=== PATIENT | female | born 1955 | race African-American/Black ===

== ENCOUNTER 2018-02-24 11:25 | Emergency (ER) | payer OTHER ==
[~2018-02-24] VITALS: Ht 165.1 cm; Wt 66.0 kg
[2018-02-24] MEDS ORDERED: PREDNISONE 20MG TABLET PO ONE (12:00)
[2018-02-24] MEDS ORDERED: FAMOTIDINE 20MG TABLET PO ONE (12:00)
[2018-02-24] MEDS ORDERED: DIPHENHYDRAMINE 50MG CAPSULE PO ONE (12:00)
[2018-02-24 14:23] VITALS: BP 141/84
== END 2018-02-24 14:31 | disposition home or self-care (01) ==
LOC: ER 11:25
DX: T78.40XA Allergy, unspecified, initial encounter (principal); E11.9 Type 2 diabetes mellitus without complications; I10 Essential (primary) hypertension; Z90.710 Acquired absence of both cervix and uterus; Z88.2 Allergy status to sulfonamides; Z91.041 Radiographic dye allergy status; J45.909 Unspecified asthma, uncomplicated; Z90.49 Acquired absence of other specified parts of digestive tract; X58.XXXA Exposure to other specified factors, initial encounter
CPT/HCPCS: 99284; J7512; Z7610; Q0163

== ENCOUNTER 2023-10-04 13:32 | Emergency (ER) | payer OTHER ==
[~2023-10-04] VITALS: Ht 162.6 cm; Wt 65.0 kg
[2023-10-04 13:47] VITALS: O2SAT 99
[2023-10-04 17:54] VITALS: BP 136/85; PULSE 64; RESP 20; TEMP 97.7
== END 2023-10-04 18:16 | disposition home or self-care (01) ==
LOC: ER 13:32
DX: S09.90XA Unspecified injury of head, initial encounter (principal); R58 Hemorrhage, not elsewhere classified; J45.909 Unspecified asthma, uncomplicated; Z90.49 Acquired absence of other specified parts of digestive tract; Z90.710 Acquired absence of both cervix and uterus; Z88.2 Allergy status to sulfonamides; Z91.040 Latex allergy status; W18.39XA Other fall on same level, initial encounter; Y93.89 Activity, other specified; Y92.89 Other specified places as the place of occurrence of the external cause; Y99.8 Other external cause status
CPT/HCPCS: 70486; 99284